=== PATIENT | female | born 1990 | race African-American/Black ===

== ENCOUNTER 2017-03-28 12:03 | Emergency (ER) | payer SELFPAY ==
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
== END 2017-03-28 13:00 | disposition home or self-care (01) ==
LOC: SCSER 12:03
DX: S86.911A Strain of unspecified muscle(s) and tendon(s) at lower leg level, right leg, initial encounter (principal); W11.XXXA Fall on and from ladder, initial encounter